=== PATIENT | male | born 1970 | race Caucasian/White ===

== ENCOUNTER 2017-10-02 11:51 | Emergency (ER) | payer SELFPAY ==
--- NOTE | 2017-10-02 13:07 | RAD ---
HISTORY: injury, left foot trauma COMPARISONS: June 04, 2012 VIEWS: 4, Frontal, lateral, and oblique views of the left foot FINDINGS: BONE DENSITY: Normal. BONES: There is no displaced fracture. There are plantar calcaneal enthesophytes. JOINTS: There is no arthropathy. ALIGNMENT: There is no dislocation. SOFT TISSUES: Unremarkable. OTHER FINDINGS: None. IMPRESSION: NO ACUTE OSSEOUS INJURY. IF SYMPTOMS PERSIST, RECOMMEND REPEAT IMAGING.
[2017-10-02 14:37] VITALS: BP 133/90
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
== END 2017-10-02 14:35 | disposition home or self-care (01) ==
LOC: ED 11:51
DX: L03.116 Cellulitis of left lower limb (principal)
CPT/HCPCS: 99282

== ENCOUNTER 2018-02-25 09:16 | Emergency (ER) | payer SELFPAY ==
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
[2018-02-25] MEDS ORDERED: NS 0.9% 1000 ML* 1,000 ML IV ONE (10:09)
[2018-02-25] MEDS ORDERED: Ondansetron INJ* 2 MG/ML VIAL IV ONE (10:09)
[2018-02-25] MEDS ORDERED: Ketorolac INJ* 30 MG/ML 1 ML VIAL IV PUSH ONE (10:10)
[2018-02-25 10:28] LABS: ABS Basophils 0.1 10^3/ul (0-0.2); ABS Eosinophils 0.1 10^3/ul (0-0.6); ABS Lymphocytes 0.8 10^3/ul (1.0-4.8); ABS Monocytes 0.7 10^3/ul (0-0.8); ABS Neutrophils 8.4 10^3/ul (1.5-7.7); ABS Nucleated RBC 0 10^3/ul; Eosinophil % 0.9 %; Hematocrit 43 % (42-52); Hemoglobin 14.7 g/dl (14.0-18.0); Lymphocyte % 7.7 %; Mean Corpuscular HGB Conc 34 g/dl (31-36); Mean Corpuscular Hemoglobin 31 pg (27-31); Mean Corpuscular Volume 92 fL (80-94); Mean Platelet Volume 8.9 fL (7.4-10.4); Nucleated Red Blood Cells % 0; Platelet Count 236 10^3/ul (150-450); Red Cell Distribution Width 13 % (10.5-15); White Blood Count 10.1 10^3/ul (3.5-10.8)
[2018-02-25] MEDS ORDERED: Albuterol/Ipratropium NEB.SOL* Albuterol 2.5 MG/Ipratropium 0.5 MG 3 ML INH ONE (10:32)
[2018-02-25 10:43] LABS: EGFR Non-African American 92.4 (>60)
[2018-02-25] MEDS ORDERED: Morphine VIAL* 4 MG/ML VIAL (1 ml vial) IV ONE (12:15)
[2018-02-25 13:29] VITALS: BP 117/73
== END 2018-02-25 13:28 | disposition home or self-care (01) ==
LOC: ED 09:16
DX: B34.9 Viral infection, unspecified (principal); R50.9 Fever, unspecified; R05 Cough; R11.0 Nausea; R19.7 Diarrhea, unspecified; R51 Headache
CPT/HCPCS: 36415; 71046; 80053; 85025; 96361; 96374; 96375; 99283; A9270-GY; J1885; J2270; J2405

== ENCOUNTER 2018-07-16 07:12 | Emergency (ER) | payer SELFPAY ==
[2018-07-16] MEDS ORDERED: Ibuprofen TAB* 600 MG PO ONE (07:26)
[2018-07-16 08:39] VITALS: BP 118/83
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
== END 2018-07-16 08:36 | disposition home or self-care (01) ==
LOC: ED 07:12
DX: S00.33XA Contusion of nose, initial encounter (principal); F32.9 Major depressive disorder, single episode, unspecified; W22.8XXA Striking against or struck by other objects, initial encounter; Y92.9 Unspecified place or not applicable
CPT/HCPCS: 70150; 99282; A9270-GY

== ENCOUNTER 2018-07-18 12:34 | Emergency (ER) | payer SELFPAY ==
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
[2018-07-18 16:28] VITALS: BP 148/89
== END 2018-07-18 16:26 | disposition home or self-care (01) ==
LOC: ED 12:34
DX: S02.2XXA Fracture of nasal bones, initial encounter for closed fracture (principal); W22.8XXA Striking against or struck by other objects, initial encounter; Y99.0 Civilian activity done for income or pay; J30.9 Allergic rhinitis, unspecified; R51 Headache; F32.9 Major depressive disorder, single episode, unspecified; J32.9 Chronic sinusitis, unspecified
CPT/HCPCS: 70486; 99282

== ENCOUNTER 2020-11-11 19:28 | Inpatient (IN) ==
[2020-11-12] MEDS ORDERED: NS 0.9% 1000 ml BAG 1,000 ML IV ONE (01:42)
[2020-11-12] MEDS ORDERED: Ondansetron 4 mg VIAL 2 MG/ML 2 ml VIAL IV ONE (04:30)
[2020-11-12] MEDS ORDERED: Metoclopramide 5 MG/ML VIAL (10 mg) IV SLOW PU ONE (05:35)
[2020-11-12 06:02] LABS: ABS Lymphocytes 0.7 10^3/ul (1.0-4.8); ABS Monocytes 0.2 10^3/ul (0-0.8); ABS Neutrophils 10.8 10^3/ul (1.5-7.7); Hematocrit 45 % (42-52); Hemoglobin 15.2 g/dL (14.0-18.0); Lymphocyte % 5.8 %; Mean Corpuscular HGB Conc 34 g/dL (31-36); Mean Corpuscular Hemoglobin 32 pg (27-31); Mean Corpuscular Volume 94 fL (80-94); Platelet Count 223 10^3/uL (150-450); Red Blood Count 4.78 10^6 /uL (4.18-5.48); Red Cell Distribution Width 13 % (10-15); White Blood Count 11.7 10^3/uL (3.5-10.8)
[2020-11-12 06:20] LABS: ALT 20 U/L (7-52); AST 19 U/L (13-39); Albumin 4.3 g/dL (3.2-5.2); Albumin/Globulin Ratio 1.6 (1-3); Alkaline Phosphatase 62 U/L (35-149); Anion Gap 17 mmol/L (2-11); Blood Urea Nitrogen 14 mg/dL (6-24); C Reactive Protein 5.63 mg/L (<8.01); CO2 Carbon Dioxide 16 mmol/L (22-32); Calcium 8.7 mg/dL (8.6-10.3); Chloride 105 mmol/L (101-111); Creatine Kinase 147 U/L (10-223); EGFR African American 104.9 (>60); EGFR Non-African American 86.7 (>60); Globulin 2.7 g/dL (2-4); Glucose 150 mg/dL (70-100); Lipase < 10 U/L (11.0-82.0); Magnesium 1.8 mg/dL (1.9-2.7); Potassium 3.7 mmol/L (3.5-5.0); Sodium 138 mmol/L (135-145)
[2020-11-12] MEDS ORDERED: Iohexol 300 (CONTRAST) 10 ML SDV IV ONE (06:47)
[2020-11-12 12:57] LABS: Rapid COVID-19 Molecular Undetected (Undetected)
[2020-11-12] MEDS: Lactated Ringers 1000 ml BAG 1,000 ML IV SCH ×2 (13:56→22:59)
[2020-11-12] MEDS: Enoxaparin 40 MG/0.4 ML SYR SUBCUT SCH (13:56)
[2020-11-12] MEDS: Morphine 2 MG/ML SYRINGE IV PRN ×2 (14:00→22:59)
[2020-11-12] MEDS: Ondansetron 4 mg VIAL 2 MG/ML 2 ml VIAL IV PRN ×2 (14:00→19:48)
[2020-11-12] MEDS: Prochlorperazine 5 mg/ml 2 ml VIAL (10 mg) IV PRN ×2 (15:17→20:45)
[2020-11-13] MEDS: Morphine 2 MG/ML SYRINGE IV PRN ×3 (02:58→20:25)
[2020-11-13] MEDS: Prochlorperazine 5 mg/ml 2 ml VIAL (10 mg) IV PRN ×2 (02:58→20:25)
[2020-11-13 05:35] LABS: ABS Lymphocytes 0.9 10^3/ul (1.0-4.8); ABS Monocytes 0.7 10^3/ul (0-0.8); ABS Neutrophils 9.8 10^3/ul (1.5-7.7); Hematocrit 43 % (42-52); Hemoglobin 14.8 g/dL (14.0-18.0); Lymphocyte % 7.8 %; Mean Corpuscular HGB Conc 34 g/dL (31-36); Mean Corpuscular Hemoglobin 32 pg (27-31); Mean Corpuscular Volume 94 fL (80-94); Mean Platelet Volume 10.1 fL (7.4-10.4); Platelet Count 215 10^3/uL (150-450); Red Blood Count 4.59 10^6 /uL (4.18-5.48); Red Cell Distribution Width 13 % (10-15); White Blood Count 11.4 10^3/uL (3.5-10.8)
[2020-11-13 05:46] LABS: Albumin 4.1 g/dL (3.2-5.2); Albumin/Globulin Ratio 1.8 (1-3); Calcium 8.8 mg/dL (8.6-10.3); EGFR African American 111.8 (>60); EGFR Non-African American 92.4 (>60); Globulin 2.3 g/dL (2-4); Magnesium 1.7 mg/dL (1.9-2.7); Potassium 3.9 mmol/L (3.5-5.0); Total Bilirubin 0.6 mg/dL (0.2-1.0); Total Protein 6.4 g/dL (6.4-8.9)
[2020-11-13] MEDS ORDERED: Magnesium Sulfate 2 gm BAG 2 GM/50 ML BAG IVPB ONE (08:21)
[2020-11-13] MEDS ORDERED: Venlafaxine XR 75 mg PO SCH (09:00)
[2020-11-13] MEDS ORDERED: Acetaminophen IV 1 GM/100ML 100 ML IV PRN (09:41)
[2020-11-13] MEDS: Lactated Ringers 1000 ml BAG 1,000 ML IV SCH ×2 (09:42→20:31)
[2020-11-13] MEDS: Enoxaparin 40 MG/0.4 ML SYR SUBCUT SCH (12:40)
[2020-11-13] MEDS ORDERED: Gadoteridol (CONTRAST) 279.3 MG/ML 10 ML IV ONE (15:31)
[2020-11-13 17:41] LABS: ABS Basophils 0.1 10^3/ul (0-0.2); ABS Monocytes 0.8 10^3/ul (0-0.8); ABS Neutrophils 10.8 10^3/ul (1.5-7.7); Hematocrit 42 % (42-52); Hemoglobin 14.3 g/dL (14.0-18.0); Lymphocyte % 7.7 %; Mean Corpuscular HGB Conc 34 g/dL (31-36); Mean Corpuscular Hemoglobin 32 pg (27-31); Mean Corpuscular Volume 94 fL (80-94); Mean Platelet Volume 9.7 fL (7.4-10.4); Platelet Count 212 10^3/uL (150-450); Red Blood Count 4.48 10^6 /uL (4.18-5.48); Red Cell Distribution Width 13 % (10-15); White Blood Count 12.6 10^3/uL (3.5-10.8)
[2020-11-13 17:57] LABS: Activated Partial Thrombo Time 29.8 seconds (26.0-38.0); EGFR Non-African American 97.5 (>60); INR 1.2 (0.86-1.15)
[2020-11-14] MEDS: Morphine 2 MG/ML SYRINGE IV PRN ×5 (00:33→21:30)
[2020-11-14] MEDS: Prochlorperazine 5 mg/ml 2 ml VIAL (10 mg) IV PRN ×3 (03:40→16:11)
[2020-11-14] MEDS: Lactated Ringers 1000 ml BAG 1,000 ML IV SCH ×2 (06:48→21:40)
[2020-11-14] MEDS: Heparin 5000 UNITS/ML 1 mL VIAL SUBCUT SCH ×3 (11:56→21:30)
[2020-11-15] MEDS: Heparin 5000 UNITS/ML 1 mL VIAL SUBCUT SCH ×3 (06:05→21:43)
[2020-11-15] MEDS: Morphine 2 MG/ML SYRINGE IV PRN ×4 (06:05→17:55)
[2020-11-15] MEDS: Prochlorperazine 5 mg/ml 2 ml VIAL (10 mg) IV PRN ×2 (07:48→14:28)
[2020-11-15] MEDS: Lactated Ringers 1000 ml BAG 1,000 ML IV SCH (08:14)
[2020-11-16] MEDS: Lactated Ringers 1000 ml BAG 1,000 ML IV SCH ×2 (04:19→18:17)
[2020-11-16] MEDS: Morphine 2 MG/ML SYRINGE IV PRN ×4 (04:22→23:27)
[2020-11-16] MEDS: Ondansetron 4 mg VIAL 2 MG/ML 2 ml VIAL IV PRN (05:16)
[2020-11-16 07:04] LABS: ABS Lymphocytes 0.7 10^3/ul (1.0-4.8); ABS Monocytes 0.9 10^3/ul (0-0.8); Eosinophil % 0.3 %; Hematocrit 43 % (42-52); Hemoglobin 15.3 g/dL (14.0-18.0); Lymphocyte % 8.6 %; Mean Corpuscular HGB Conc 35 g/dL (31-36); Mean Corpuscular Hemoglobin 33 pg (27-31); Mean Corpuscular Volume 93 fL (80-94); Nucleated Red Blood Cells % 0.1; Platelet Count 171 10^3/uL (150-450); Red Blood Count 4.68 10^6 /uL (4.18-5.48); Red Cell Distribution Width 13 % (10-15); White Blood Count 7.5 10^3/uL (3.5-10.8)
[2020-11-16 07:18] LABS: Calcium 8.6 mg/dL (8.6-10.3); EGFR African American 123.1 (>60); EGFR Non-African American 101.7 (>60); Magnesium 1.8 mg/dL (1.9-2.7); Potassium 3.4 mmol/L (3.5-5.0)
[2020-11-16] MEDS ORDERED: Magnesium Sulfate IV 1GM/100ML 1 GM/100 ML BAG IV ONE (08:02)
[2020-11-16] MEDS ORDERED: Buffered Lidocaine 1% SYRIN 1 ml INTRADERM ONE (08:06)
[2020-11-16] MEDS ORDERED: Propofol 10 MG/ML 20 ML BTL ONE ×2 (08:32→09:21)
[2020-11-16] MEDS ORDERED: Rocuronium 50 mg VIAL 10 mg/ml 5 ml VIAL (50 mg) ONE ×3 (08:32→10:37)
[2020-11-16] MEDS ORDERED: Lidocaine 2% PF 5 ML VIAL ONE ×2 (08:33→09:21)
[2020-11-16] MEDS ORDERED: Midazolam 2 mg/2 ml VIAL 1 mg/ml 2 ml VIAL (2 mg) ONE (08:35)
[2020-11-16] MEDS ORDERED: fentaNYL 250 mcg/5 ml 50 MCG/ML 5 ml VIAL (250 MCG) ONE ×2 (08:35→09:22)
[2020-11-16] MEDS ORDERED: Famotidine IV 10 MG/ML 2 ml VIAL (20 mg) ONE (09:15)
[2020-11-16] MEDS ORDERED: ceFAZolin 2 GM in NS PREMIX 2 GM/100 ML BAG IVPB ONE (09:15)
[2020-11-16] MEDS ORDERED: ceFAZolin 1 GM ADVAN 1 GM ADDV.VIAL IVPB ONE (09:15)
[2020-11-16] MEDS ORDERED: Famotidine IV 10 MG/ML 2 ml VIAL (20 mg) IV ONE (09:16)
[2020-11-16] MEDS ORDERED: Ondansetron 4 mg VIAL 2 MG/ML 2 ml VIAL ONE ×2 (09:21→12:51)
[2020-11-16] MEDS ORDERED: Dexamethasone IV 4 MG/ML VIAL 1 ml VIAL ONE (09:21)
[2020-11-16] MEDS ORDERED: Midazolam 5 mg/5 ml VIAL 1 mg/ml 5 ml VIAL (5 mg) ONE ×2 (09:22→09:26)
[2020-11-16] MEDS ORDERED: Ketamine HCL 50 mg/ml 10 ml VIAL (500 MG) ONE (09:22)
[2020-11-16] MEDS ORDERED: Scopolamine PATCH Remove NOTE PATCH OFF SCH (10:00)
[2020-11-16] MEDS ORDERED: Lactated Ringers 1000 ml BAG 1,000 ML IV SCH (10:00)
[2020-11-16] MEDS ORDERED: HYDROmorphone 1 MG/1 ML SYRINGE IV PRN (10:20)
[2020-11-16] MEDS ORDERED: Ondansetron 4 mg VIAL 2 MG/ML 2 ml VIAL IV PRN (10:20)
[2020-11-16] MEDS ORDERED: Naloxone 0.4 mg VIAL 0.4 mg/ml 1 ml VIAL IV PRN (10:20)
[2020-11-16] MEDS ORDERED: fentaNYL 100 mcg/2 ml 50 MCG/ML VIAL IV PRN (10:20)
[2020-11-16] MEDS ORDERED: Phenylephrine 40 mcg/mL 10mL (400mcg) SYRINGE ONE (10:29)
[2020-11-16] MEDS ORDERED: HYDROmorphone 1 MG/1 ML SYRINGE ONE (11:10)
[2020-11-16] MEDS ORDERED: Acetaminophen IV 1 GM/100ML 100 ML IV ONE (11:41)
[2020-11-16] MEDS: KCL 20 MEQ/100 ML IVPREMIX 20 MEQ/100 ML BAG IV SCH ×2 (15:14→18:15)
[2020-11-16] MEDS ORDERED: KCL 20 MEQ/100 ML IVPREMIX 20 MEQ/100 ML BAG ONE (18:12)
[2020-11-17] MEDS: Morphine 2 MG/ML SYRINGE IV PRN ×3 (03:24→16:16)
[2020-11-17] MEDS: Lactated Ringers 1000 ml BAG 1,000 ML IV SCH ×2 (05:01→14:53)
[2020-11-17 07:55] LABS: ABS Lymphocytes 1.3 10^3/ul (1.0-4.8); ABS Monocytes 1.4 10^3/ul (0-0.8); ABS Neutrophils 9.9 10^3/ul (1.5-7.7); Eosinophil % 0.2 %; Hematocrit 41 % (42-52); Hemoglobin 14.3 g/dL (14.0-18.0); Lymphocyte % 9.9 %; Mean Corpuscular HGB Conc 35 g/dL (31-36); Mean Corpuscular Hemoglobin 32 pg (27-31); Mean Corpuscular Volume 93 fL (80-94); Mean Platelet Volume 10.4 fL (7.4-10.4); Platelet Count 198 10^3/uL (150-450); Red Blood Count 4.44 10^6 /uL (4.18-5.48); Red Cell Distribution Width 13 % (10-15); White Blood Count 12.7 10^3/uL (3.5-10.8)
[2020-11-17 08:16] LABS: Calcium 8.8 mg/dL (8.6-10.3); EGFR African American 102.4 (>60); EGFR Non-African American 84.6 (>60); Magnesium 1.9 mg/dL (1.9-2.7); Potassium 3.5 mmol/L (3.5-5.0)
[2020-11-17] MEDS ORDERED: Magnesium Hydroxide LIQ 30 ML UDC PO PRN (10:00)
[2020-11-17] MEDS ORDERED: Senna TAB 8.6 mg TAB PO PRN (10:00)
[2020-11-17] MEDS ORDERED: Polyethylene Glycol 3350 17 GM PACKET PO PRN (10:00)
[2020-11-17] MEDS: Heparin 5000 UNITS/ML 1 mL VIAL SUBCUT SCH ×2 (14:53→22:07)
[2020-11-17] MEDS: Magnesium Hydroxide LIQ 30 ML UDC PO SCH (22:11)
[2020-11-18] MEDS: Lactated Ringers 1000 ml BAG 1,000 ML IV SCH (00:45)
[2020-11-18] MEDS: Heparin 5000 UNITS/ML 1 mL VIAL SUBCUT SCH (06:10)
[2020-11-18 07:00] LABS: ABS Eosinophils 0.1 10^3/ul (0-0.6); ABS Lymphocytes 0.9 10^3/ul (1.0-4.8); ABS Monocytes 0.7 10^3/ul (0-0.8); ABS Neutrophils 6.1 10^3/ul (1.5-7.7); Eosinophil % 0.7 %; Hematocrit 40 % (42-52); Hemoglobin 13.8 g/dL (14.0-18.0); Mean Corpuscular HGB Conc 35 g/dL (31-36); Mean Corpuscular Hemoglobin 32 pg (27-31); Mean Corpuscular Volume 93 fL (80-94); Platelet Count 185 10^3/uL (150-450); Red Blood Count 4.27 10^6 /uL (4.18-5.48); Red Cell Distribution Width 13 % (10-15); White Blood Count 7.9 10^3/uL (3.5-10.8)
[2020-11-18 07:23] LABS: Calcium 8.4 mg/dL (8.6-10.3); EGFR African American 116.4 (>60); EGFR Non-African American 96.2 (>60); Potassium 3.8 mmol/L (3.5-5.0)
[2020-11-18] MEDS: Magnesium Hydroxide LIQ 30 ML UDC PO SCH (08:06)
[2020-11-18 12:48] VITALS: BP 131/81
== END 2020-11-18 15:31 | disposition home or self-care (01) | DRG 950 ==
LOC: MED 19:28 → ED 19:28 → SUATTDRO 11-12 13:12 → SSU 11-13 03:35 → SUATTDRO 11-13 13:20 → SSU 11-16 08:05
PROVIDERS: ADMIT Internal Medicine; ATTEND Surgery

== ENCOUNTER 2021-04-21 09:30 | Inpatient (IN) ==
[~2021-04-21 09:30] MED LIST: Buffered Lidocaine 1% SYRIN 1 ml INTRADERM ONE; Famotidine IV 10 MG/ML 2 ml VIAL (20 mg) IV ONE; Lactated Ringers 1000 ml BAG 1,000 ML IV SCH
[2021-04-21] MEDS ORDERED: ceFAZolin 2 GM PREMIX 2 GM/50 ML BAG ONE (09:58)
[2021-04-21] MEDS ORDERED: Famotidine IV 10 MG/ML 2 ml VIAL (20 mg) ONE (09:59)
[2021-04-21] MEDS ORDERED: Ondansetron 4 mg VIAL 2 MG/ML 2 ml VIAL ONE ×3 (11:50→16:42)
[2021-04-21] MEDS ORDERED: Rocuronium 50 mg VIAL 10 mg/ml 5 ml VIAL (50 mg) ONE ×3 (11:50→14:26)
[2021-04-21] MEDS ORDERED: Propofol 10 MG/ML 20 ML BTL ONE (11:50)
[2021-04-21] MEDS ORDERED: Lidocaine 2% PF 5 ML VIAL ONE (11:50)
[2021-04-21] MEDS ORDERED: Midazolam 2 mg/2 ml VIAL 1 mg/ml 2 ml VIAL (2 mg) ONE (11:50)
[2021-04-21] MEDS ORDERED: Dexamethasone IV 4 MG/ML VIAL 1 ml VIAL ONE (11:50)
[2021-04-21] MEDS ORDERED: fentaNYL 100 mcg/2 ml 50 MCG/ML VIAL ONE ×2 (11:50→13:46)
[2021-04-21] MEDS ORDERED: Bupivacaine 0.25% SDV PF 10 ML VIAL INJ ONE (12:22)
[2021-04-21] MEDS ORDERED: Bupivacaine 0.5% 50 ML MDV VIAL ONE (12:25)
[2021-04-21] MEDS ORDERED: Bupivacaine 0.25% SDV 30 ML ONE (12:27)
[2021-04-21] MEDS ORDERED: HYDROmorphone 0.5 MG/0.5 ML SYRINGE ONE ×2 (13:12→13:46)
[2021-04-21] MEDS ORDERED: Acetaminophen IV 1 GM/100ML 100 ML IV ONE (13:12)
[2021-04-21] MEDS ORDERED: Glycopyrrolate IV 0.2 MG/ML 1 ML VIAL ONE (13:25)
[2021-04-21] MEDS ORDERED: HYDROmorphone 1 MG/1 ML SYRINGE IV PRN (16:00)
[2021-04-21] MEDS ORDERED: diPHENhydraMINE IV 50 MG/ML 1 ml VIAL (BENADRYL) IV PRN (16:00)
[2021-04-21 17:38] VITALS: BP 124/80
== END 2021-04-21 17:42 | disposition home or self-care (01) | DRG 951 ==
LOC: EDSTATUS 09:30 → AA 09:31
PROVIDERS: ADMIT Surgery; ATTEND Surgery